=== PATIENT | female | born 1980 | race African-American/Black ===

== ENCOUNTER 2021-09-25 13:04 | Emergency (ER) | payer OTHER ==
[2021-09-25] MEDS ORDERED: Lidocaine 1% PF 5 ML VIAL ONE (14:30)
[2021-09-25] MEDS ORDERED: Ketorolac Tromethamine 30 MG/ML VIAL ONE (16:14)
== END 2021-09-25 16:40 | disposition home or self-care (01) ==
LOC: CSHERS 13:04
DX: L05.01 Pilonidal cyst with abscess (principal); F17.210 Nicotine dependence, cigarettes, uncomplicated
CPT/HCPCS: 10080; 96372; J1885